=== PATIENT | female | born 1945 | race Asian ===

== ENCOUNTER 2017-07-12 10:03 | Day surgery (SDC) | payer MEDICARE, OTHER ==
--- NOTE | 2017-07-10 11:14 | HISTORY AND PHYSICAL E ---
History and Physical NAME: SOLO PALAFOX : 1945 AGE: 71Y ADMITTED: 07/12/2017 ROOM: REFERRING PHYSICIAN: Ray Valderrama MD and LISA Bar HISTORY OF PRESENT ILLNESS: A 71-year-old female for colon screening. Patient does have history of diarrhea at times and hemorrhoid surgery. SOCIAL HISTORY: . Does not smoke. Does not drink. SURGICAL HISTORY: MEDICAL HISTORY: 1. Colonoscopy done in the past; Dr. Smith. She was a colon exam by Dr. Smith; no polyps. 2. Hysterectomy. 3. Appendectomy. REVIEWING OF SYSTEMS: HEAD, EYES, EARS, NOSE, THROAT: Eyeglasses. RESPIRATORY: Negative. GASTROINTESTINAL: Colon screening. ENDOCRINE: Question of borderline diabetes. CARDIAC: Hypertension. ONCOLOGY/HEMATOLOGY: Negative. NEUROLOGY: Negative. FAMILY HISTORY: Father had heart disease. Mom had diabetes. PHYSICAL EXAMINATION: GENERAL: Pleasant, 71-year-old female in no acute distress. VITAL SIGNS: Blood pressure 120/80. Pulse 80. Respirations 18. Temperature is 98. HEAD, EYES, EARS, NOSE, THROAT: Normal. NECK: Is supple. CARDIOVASCULAR: Normal. LUNGS: Were clear. ABDOMEN: Soft. NEUROLOGIC: Examination negative. MEDICATIONS: 1. Boniva. 2. Premarin. 3. Lisinopril. 4. Tylenol. CONCLUSION: COLON SCREENING. PLAN: Colon exam for 07/12/2017. DICTATING PHYSICIAN: MORAIMA RIVERA M.D. [id number] [id number] Y#: [id number] ID: [id number] JOB#: [id number] ACCT: [id number] cc:RAY VALDERRAMA M.D., WENDY MISTRY M.D. >
[2017-07-12] MEDS ORDERED: ONDANSETRON HCL INJ/PF 4 MG/2 ML SDV ONE (10:26)
[2017-07-12] MEDS ORDERED: FLUMAZENIL INJ 0.5 MG/5 ML VIAL ONE (10:27)
[2017-07-12] MEDS ORDERED: NALOXONE HCL INJ/PF 0.4 MG/1 ML SDV ONE (10:27)
[2017-07-12] MEDS ORDERED: GLYCOPYRROLATE INJ 0.4 MG/2 ML VIAL ONE (10:27)
[2017-07-12] MEDS ORDERED: EPINEPHRINE INJ 1 MG/10 ML DISP.SYRIN ONE (10:28)
[2017-07-12] MEDS: MIDAZOLAM 2 MG/2 ML INJ ONE ×2 (11:00→11:07)
[2017-07-12] MEDS: FENTANYL CITRATE INJ/PF 100 MCG/2 ML AMPUL ONE ×2 (11:02→11:08)
[2017-07-12 12:29] VITALS: BP 106/58
--- NOTE | 2017-07-12 13:42 | OPERATIVE REPORT E ---
Operative Report NAME: SOLO PALAFOX : 1945 AGE: 71Y DATE OF SURGERY: 07/12/2017 ROOM: PREOPERATIVE DIAGNOSIS: Colon screening. POSTOPERATIVE DIAGNOSIS: No polyps. PROCEDURE: Colonoscopy. SURGEON: MORAIMA RIVERA M.D. ANESTHESIA: Versed 3 and fentanyl 75. TISSUE REMOVED OR ALTERED: None. DESCRIPTION OF PROCEDURE: Rectal exam: Patient does have history of hemorrhoid surgery. No evidence of abnormality of rectum. Sigmoid descending colon normal. Transverse colon normal. Ascending colon normal. Cecum normal. Scope withdrawn from cecum, ascending, transverse, descending, sigmoid all the way to the rectum. CONCLUSION: No evidence of polyps. Some redundancy. No evidence of malignancy. No diverticulosis. Good prep. Adequate . No evidence of polyps. Consideration followup colonoscopy 10 years. DICTATING PHYSICIAN: MORAIMA RIVERA M.D. 1211M 1140 PHY#: [id number] ID: [id number] JOB#: [id number] ACCT: [id number] cc:MARY WINN M.D., MAHMOUD M.D. >
--- NOTE | 2017-07-12 13:48 | DISCHARGE SUMMARY E ---
Discharge Summary NAME: SOLO PALAFOX : 1945 AGE: 71Y ADMITTED: 07/12/2017 DISCHARGED: 07/12/2017 HISTORY AND HOSPITAL COURSE: The patient is a 71-year-old female who underwent colon screening today, which showed no evidence of polyps. She did have previous colonoscopy with Dr. Smith more than 10 years ago. Today's 10-year followup colonoscopy shows no evidence of polyps. She did have hemorrhoid surgery, appendectomy, hysterectomy. CONCLUSION: Colonoscopy screening showed no polyps, no malignancy. PLAN: Assurance. Soft diet today. Continue present management. Patient to see us in the office in the next few days. DICTATING PHYSICIAN: MORAIMA RIVERA M.D. [id number] 1136 PHY#: [id number] ID: [id number] JOB#: [id number] ACCT: [id number] cc:MARY WINN M.D., MAHMOUD M.D. >
== END 2017-07-12 12:25 | disposition home or self-care (01) ==
LOC: END 10:03
PROVIDERS: ATTEND Specialist
PROC: 0DJD8ZZ Inspection of Lower Intestinal Tract, Via Natural or Artificial Opening Endoscopic (ICD-10-PCS; principal; 2017-07-12 11:00)
DX: R19.7 Diarrhea, unspecified (principal); I10 Essential (primary) hypertension; Z79.899 Other long term (current) drug therapy; Z90.710 Acquired absence of both cervix and uterus
CPT/HCPCS: 45378; J2250; J3010; J2405; J0171; J2310; J3490